=== PATIENT | female | born 1985 | race Caucasian/White ===

== ENCOUNTER 2016-12-01 16:05 | Emergency (ER) | payer OTHER ==
--- NOTE | 2016-12-01 16:20 | ED PDOC ---
Arrival/HPI - General Time Seen by Provider: 12/01/16 16:16 Historian: Patient - History of Present Illness Narrative History of Present Illness (Text): 12/01/16 16:17 This 31-year-old female presents to the emergency department complaining of neck pain left shoulder pain and lower back pain 2 days. Patient stated while walking down stairs at work she fell backwards. Patient denies head injury, loss of consciousness, diplopia, shortness of breath, dizziness, chest pain, syncope, urinary symptoms, /GI incontinence, saddle anesthesias, urinary retention, weakness, paresthesias, abdominal pain, or abnormal gait. Time/Duration: Other (2 days) Quality: Aching Context: Work Past Medical History - Provider Review Nursing Documentation Reviewed: Yes - Tetanus Immunization Tetanus Immunization: Unknown - Past Medical History Past Medical History: No Previous - Psychiatric Hx Substance Use: No - Past Surgical History Past Surgical History: No Previous - Anesthesia Hx Anesthesia Reactions: No - Suicidal Assessment Feels Threatened In Home Enviroment: No Family/Social History - Physician Review Nursing Documentation Reviewed: Yes Family/Social History: Other (Noncontributory) Smoking Status: Never Smoked Hx Alcohol Use: No Hx Substance Use: No Hx Substance Use Treatment: No Allergies/Home Meds Allergies/Adverse Reactions: Allergies No Known Allergies Allergy (Verified 08/01/14 09:39) Review of Systems - Review of Systems Constitutional: Normal. absent: Fatigue, Weight Change, Fevers Eyes: Normal ENT: Normal Respiratory: Normal. absent: SOB, Cough Cardiovascular: Normal. absent: Chest Pain, Palpitations Gastrointestinal: Normal. absent: Abdominal Pain, Nausea, Vomiting Genitourinary Female: Normal. absent: Dysuria, Frequency, Hematuria Musculoskeletal: Arthralgias, Back Pain, Neck Pain Skin: Normal. absent: Rash, Laceration, Cellulitis Neurological: Normal. absent: Headache, Dizziness, Focal Weakness, Gait Changes , Speech Changes, Facial Droop, Disequilibrium, Seizure Endocrine: Normal Hemo/Lymphatic: Normal Psychiatric: Normal Physical Exam Vital Signs Temp Pulse Resp BP Pulse Ox 12/01/16 16:20 99 F 76 16 112/76 98 Temperature: Afebrile Blood Pressure: Normal Pulse: Regular Respiratory Rate: Normal Appearance: Positive for: Well-Appearing, Non-Toxic, Comfortable Pain Distress: None Mental Status: Positive for: Alert and Oriented X 3 - Systems Exam Head: Present: Atraumatic, Normocephalic Pupils: Present: PERRL Extroacular Muscles: Present: EOMI Conjunctiva: Present: Normal Mouth: Present: Moist Mucous Membranes Neck: Present: Normal Range of Motion, Paraspinal Tenderness (Mild left paravertebral tenderness. No vertebral step-off. No vertebral point tenderness) , Trachea Midline. No: Meningeal Signs, MIDLINE TENDERNESS, Lymphadenopathy Respiratory/Chest: Present: Clear to Auscultation, Good Air Exchange. No: Respiratory Distress, Accessory Muscle Use Cardiovascular: Present: Regular Rate and Rhythm, Normal S1, S2. No: Murmurs Abdomen: Present: Normal Bowel Sounds. No: Tenderness, Distention, Peritoneal Signs Back: Present: Normal Inspection, Paraspinal Tenderness (Mild left pulmonary arterial tenderness. No vertebral point tenderness. No vertebral step-off). No : CVA Tenderness, Midline Tenderness, Pain with Leg Raise Upper Extremity: Present: Normal Inspection, Normal ROM, NORMAL PULSES, Neurovascularly Intact, Capillary Refill < 2s. No: Cyanosis, Edema, Tenderness , Swelling, Erythema Lower Extremity: Present: Normal Inspection. No: Edema Neurological: Present: GCS=15, CN II-XII Intact, Speech Normal, Motor Func Grossly Intact, Normal Sensory Function, Normal Cerebellar Funct, Gait Normal, Memory Normal Skin: Present: Warm, Dry, Normal Color. No: Rashes Psychiatric: Present: Alert, Oriented x 3, Normal Insight, Normal Concentration Medical Decision Making ED Course and Treatment: 12/01/16 17:19 Patient came complaining of neck pain and lower back pain and mechanical fall at work. Patient noted left sided neck pain radiates to her left arm. Patient denies head injury. Physical exam was unremarkable. Except for mild tenderness on the left cervical and lumbar paravertebral area. Patient has a normal gait and she is able to move her head with minimal discomfort. Re-evaluation Time: 17:21 Reassessment Condition: Re-examined, Improved - RAD Interpretation Narrative RAD Interpretations (Text): 12/01/16 17:25 Lumbar spine x-rays: No fracture or subluxation. Cervical spine x-rays: No fracture or subluxation. (+) spasm Radiology Orders: 12/01/16 16:28 CERVICAL SPINE >18YR W/OBLIQUE [RAD] Stat LS SPINE WITH OBL > 18 YRS OLD [RAD] Stat - Medication Orders Current Medication Orders: Discontinued Medications Diazepam (Valium) 5 mg PO ONCE ONE PRN Reason: Protocol Stop: 12/01/16 16:29 Last Admin: 12/01/16 16:45 Dose: 5 mg Ketorolac Tromethamine (Toradol) 30 mg IM STAT STA Stop: 12/01/16 16:30 Last Admin: 12/01/16 16:45 Dose: 30 mg MAR Pain Assessment Document 12/01/16 16:45 HI (Rec: 12/01/16 16:45 HI [email or web address]) Pain Reassessment Is this a pain reassessment? No Sleep Is patient sleeping during reassessment? No Presence of Pain Presence of Pain Yes Pain Scale Used Pain Scale Used Numeric Location Left, Right or Bilateral Left Pain Location Body Site Arm IM Administration Charges Document 12/01/16 16:45 HI (Rec: 12/01/16 16:45 HI [id number]) Injection Site MAR Injection Site Right Deltoid Charges for Administration # of IM Administrations 1 Disposition/Present on Arrival - Present on Arrival Any Indicators Present on Arrival: No History of DVT/PE: No History of Uncontrolled Diabetes: No Urinary Catheter: No History Surgical Site Infection Following: None - Disposition Have Diagnosis and Disposition been Completed?: Yes Diagnosis: Cervical radiculopathy, Cervical muscle strain, Back pain Disposition: HOME/ ROUTINE Disposition Time: 17:22 Patient Plan: Discharge Patient Problems: Current Active Problems Problem Status Onset Back pain Acute Cervical muscle strain Acute Cervical radiculopathy Acute Condition: GOOD Discharge Instructions (ExitCare): Cervical Strain (DC), Cervical Radiculopathy (ED), Back Pain (ED) Additional Instructions: Call private doctor for follow-up visit in 1-2 days. Take medication as instructed with food. Official report of x-rays will be available tomorrow. Rest and relax. Return to emergency if pain worsens. Do not operate machinery or drive while taking Valium. Usual also contact workers comp for further medical care Prescriptions: diaZEpam [Valium] 5 mg PO DAILY #7 tab Famotidine [Pepcid] 40 mg PO DAILY #10 tablet Naproxen 500 mg PO BID PRN #14 tab PRN Reason: Pain, Severe (8-10) Referrals: PCP,NO [Primary Care Provider] - Follow up with primary [facility] [Outside] - Follow up with primary [facility] [Outside] - Follow up with primary Forms: [employer] ([place]), WORK NOTE
[2016-12-01 16:28] VITALS: BMI 27.2
[2016-12-01 16:46] VITALS: RESP 16; TEMP 99
--- NOTE | 2016-12-01 17:24 | RAD ---
PROCEDURE: Cervical Spine Radiographs. HISTORY: Pain. COMPARISON: None. FINDINGS: BONES: There is straightening of the cervical spine which could be due to muscle spasm or patient's head position. No evidence of acute fracture. DISC SPACES: Normal. SOFT TISSUES: Normal. No prevertebral soft tissue swelling. OTHER FINDINGS: None. IMPRESSION: No evidence of acute fracture or subluxation. Straightening of the cervical spine which could be position or due to muscle spasm.
--- NOTE | 2016-12-01 17:34 | RAD ---
PROCEDURE: Radiographs of the Lumbar Spine. HISTORY: Back pain COMPARISON: No prior. FINDINGS: BONES: There is mild levocurvature in the lumbar spine. There is no spondylolysis or spondylolisthesis. Bone mineralization is normal. There is an age indeterminate superior endplate compression deformity in the L2 vertebral body. DISC SPACES: The disc heights are maintained. OTHER FINDINGS: None. IMPRESSION: Age indeterminate mild superior endplate compression deformity in the L2 vertebral body. If there is a clinical history of trauma, and if clinically indicated, an MRI may be performed to determine the acuity of the fracture.
[2016-12-01 18:29] VITALS: BP 114/78; PULSE 82; O2SAT 100
== END 2016-12-01 18:24 | disposition home or self-care (01) ==
LOC: ED 16:05
DX: S16.1XXA Strain of muscle, fascia and tendon at neck level, initial encounter (principal); W10.9XXA Fall (on) (from) unspecified stairs and steps, initial encounter; Y99.0 Civilian activity done for income or pay; M54.12 Radiculopathy, cervical region; M54.5 Low back pain
CPT/HCPCS: 72050; 72110; 81025; 96372; 99284; J1885

== ENCOUNTER 2018-07-15 14:34 | Emergency (ER) | payer BC, OTHER ==
[2018-07-15 14:34] VITALS: BMI 27.2
[2018-07-15 14:40] VITALS: RESP 18; TEMP 98.5; O2SAT 100
[2018-07-15] MEDS ORDERED: Sodium Chloride 0.9% 1,000 ML IV STA (14:44)
--- NOTE | 2018-07-15 14:57 | ED PDOC ---
Arrival/HPI - General Chief Complaint: Female Genitourinary Time Seen by Provider: 07/15/18 14:34 Historian: Patient - History of Present Illness Narrative History of Present Illness (Text): 07/15/18 15:00 A 32 year old female, whose past medical history includes UTI, , currently 17 weeks , LMP 04/02/2018, presents to the emergency department complaining of dysuria and 1 episode of vaginal bleeding starting this morning. Patient reports after using the bathroom for urination today and wiping, noticed a small streak of blood. She was instructed by her ASSISTED LIVING CARE MANAGER to be seen and evaluated in the ER. Patient denies any fall/trauma, dark/bloody stools, constipation, fever, chills, vaginal discharge, back pain, trauma, chest pain, rash, skin lesions, or any other complaints at this time. Also, patient mentions having sexual intercourse yesterday and did not bleed afterwards. OBGYN: Dr. Padgett Time/Duration: Other (starting this morning) Past Medical History - Provider Review Nursing Documentation Reviewed: Yes - Tetanus Immunization Tetanus Immunization: Unknown - Past Medical History Past Medical History: No Previous - Psychiatric Hx Substance Use: No - Past Surgical History Past Surgical History: No Previous - Surgical History Hx Tonsillectomy: Yes - Anesthesia Hx Anesthesia Reactions: No - Suicidal Assessment Feels Threatened In Home Enviroment: No Family/Social History - Physician Review Nursing Documentation Reviewed: Yes Family/Social History: No Known Family HX Smoking Status: Never Smoked Hx Alcohol Use: No Hx Substance Use: No Hx Substance Use Treatment: No Allergies/Home Meds Allergies/Adverse Reactions: Allergies No Known Allergies Allergy (Verified 07/15/18 14:40) Review of Systems - Physician Review All systems were reviewed & negative as marked: Yes - Review of Systems Constitutional: absent: Fatigue, Weight Change, Fevers, Night Sweats Eyes: absent: Vision Changes, Photophobia, Eye Pain ENT: absent: Hearing Changes, Tinnitus Respiratory: absent: SOB, Cough, Sputum, Wheezing Cardiovascular: absent: Chest Pain, Palpitations Gastrointestinal: absent: Abdominal Pain, Stool Changes (no dark/bloody stools), Constipation, Diarrhea Genitourinary Female: Dysuria, Vaginal Bleeding. absent: Frequency, Hematuria, Urine Output Changes, Vaginal Discharge Musculoskeletal: absent: Back Pain Skin: absent: Rash, Skin Lesions Neurological: absent: Headache, Dizziness Endocrine: absent: Diaphoresis Hemo/Lymphatic: absent: Adenopathy Psychiatric: absent: Anxiety Physical Exam Vital Signs Reviewed: Yes Vital Signs Temp Pulse Resp BP Pulse Ox 07/15/18 14:38 98.5 F 67 18 121/78 100 Temperature: Afebrile Blood Pressure: Normal Pulse: Regular Respiratory Rate: Normal Appearance: Positive for: Well-Appearing, Non-Toxic, Comfortable Pain Distress: None Mental Status: Positive for: Alert and Oriented X 3 - Systems Exam Head: Present: Atraumatic, Normocephalic Pupils: Present: PERRL Extroacular Muscles: Present: EOMI Conjunctiva: Present: Normal Ears: Present: Normal, NORMAL TM. No: Erythema Mouth: Present: Moist Mucous Membranes Pharnyx: Present: Normal. No: ERYTHEMA, EXUDATE, TONSILS ENLARGED, Uvular Deviation, Muffled/Hoarse Voice Nose (External): Present: Atraumatic. No: Abrasion, Contusion, Laceration Neck: Present: Normal Range of Motion. No: Meningeal Signs, MIDLINE TENDERNESS Respiratory/Chest: Present: Clear to Auscultation, Good Air Exchange. No: Respiratory Distress, Accessory Muscle Use Cardiovascular: Present: Regular Rate and Rhythm, Normal S1, S2. No: Murmurs Abdomen: No: Tenderness, Distention, Peritoneal Signs Back: Present: Normal Inspection. No: CVA Tenderness, Midline Tenderness Upper Extremity: Present: Normal Inspection, Normal ROM, NORMAL PULSES. No: Cyanosis, Edema Lower Extremity: Present: Normal Inspection, NORMAL PULSES. No: Edema Neurological: Present: GCS=15, CN II-XII Intact, Speech Normal, Motor Func Grossly Intact Skin: Present: Warm, Dry, Normal Color. No: Rashes Psychiatric: Present: Alert, Oriented x 3, Normal Insight, Normal Concentration Medical Decision Making ED Course and Treatment: 07/15/18 15:01 Impression: 32 year old female who is 17 weeks pregnany (, LMP 04/02/2018) complaining of dysuria and vaginal bleeding. No CVAT or midline pain on exam. No fall or trauma. Vaginal bleeding w/ out rash or ulcer, light amount: pt is sure non bloody stool or melanotic stool. Likely UTI vs threatned AB. Differential Diagnosis included but are not limited to: Threatened AB vs. UTI. Plan: -- Ultrasound -- Labs -- Urinalysis -- IV Fluids -- Reassess and disposition Progress Notes: 07/15/2018 16:03 Ultrasound IMPRESSION: Single live intrauterine gestation with average ultrasound age of 17 weeks 2 days. heart rate 144 beats per minute. Cervix long and closed. Dictator: Emile Fraire MD 07/15/18 16:47 Cervix closed, H&H unremarkable Blood type is A+ Pt is not RH negative: No indication for rhogram UTI on labs repeat exam: no CVAT / midline back pain or abd-ttp clear for d/c home with return indications and follow up. Pt agreeable to plan. - Lab Interpretations I have reviewed the lab results: Yes - Medication Orders Current Medication Orders: Sodium Chloride (Sodium Chloride 0.9%) 1,000 mls @ 999 mls/hr IV .[id number] STA Stop: 07/15/18 15:44 - Scribe Statement The provider has reviewed the documentation as recorded by the Scribe Agustin Sahu Provider Scribe Attestation: All medical record entries made by the Scribe were at my direction and personally dictated by me. I have reviewed the chart and agree that the record accurately reflects my personal performance of the history, physical exam, medical decision making, and the department course for this patient. I have also personally directed, reviewed, and agree with the discharge instructions and disposition. Disposition/Present on Arrival - Present on Arrival Any Indicators Present on Arrival: No History of DVT/PE: No History of Uncontrolled Diabetes: No Urinary Catheter: No History of Decub. Ulcer: No History Surgical Site Infection Following: None - Disposition Have Diagnosis and Disposition been Completed?: Yes Diagnosis: UTI (urinary tract infection), Threatened Disposition: HOME/ ROUTINE Disposition Time: 16:49 Condition: STABLE Discharge Instructions (ExitCare): Urinary Tract Infection, Adult (DC), Threatened Miscarriage (DC), Bleeding With (DC) Additional Instructions: [facility] [place], thank you for letting us take care of you today. Your provider was Isra Ware and you were treated for bleeding ( ). The emergency medical care you received today was directed at your acute symptoms. If you were prescribed any medication, please fill it and take as directed. It may take several days for your symptoms to resolve. Return to the Emergency Department if your symptoms worsen, do not improve, or if you have any other problems. Please contact your doctor or call one of the physicians/clinics you have been referred to that are listed on the Patient Visit Information form that is included in your discharge packet. Bring any paperwork you were given at discharge with you along with any medications you are taking to your follow up visit. Our treatment cannot replace ongoing medical care by a primary care prov ider outside of the emergency department. Thank you for allowing the [facility] team to be part of your care today. If you had an X-Ray or CT scan: A Radiologist will review the ED reading if any change in treatment is needed we will contact you. If you had a blood, urine, or wound culture: It will take several days for the results, if any change in treatment is needed we will contact you. If you had an STI test: It will take 48 hours for the results. Please call after 1 week if you have not heard back. Prescriptions: Cephalexin [Keflex] 500 mg PO BID 7 Days #14 capsule Referrals: Tyler Padgett MD [Family Provider] - Follow up with primary [facility] [place] [Outside] - Follow up with primary [facility] [Outside] - Follow up with primary [facility] [Outside] - Follow up with primary [facility] [Outside] - Follow up with primary Forms: [facility] (Bengali)
[2018-07-15 15:13] LABS: URINE BILIRUBIN NEGATIVE (NEGATIVE); URINE BLOOD TRACE-INTACT (NEGATIVE); URINE GLUCOSE (UA) NEGATIVE (NEGATIVE); URINE LEUKOCYTE ESTERASE SMALL Leu/uL (NEGATIVE); URINE PROTEIN NEGATIVE mg/dL (<30 mg/dL); URINE UROBILINOGEN 0.2 E.U./dL (<1 E.U./dL)
[2018-07-15 15:17] LABS: URINE APPEARANCE SL CLOUDY (CLEAR); URINE COLOR YELLOW (YELLOW)
[2018-07-15 15:37] LABS: BASO # 0.02 K/mm3 (0.0-2.0); BASO % 0.2 % (0.0-3.0); EOS # 0.2 (0.0-0.7); EOS % 1.3 % (1.5-5.0); HEMOGLOBIN 12.5 g/dL (12.0-16.0); LYMPH # 2.4 (1.2-3.4); LYMPH % 20.5 % (22.0-35.0); MEAN CELL VOLUME 78.4 fl (80.0-105.0); MEAN CORPUSCULAR HEMOGLOBIN 25.5 pg (25.0-35.0); MEAN CORPUSCULAR HGB CONC 32.6 g/dl (31.0-37.0); MONO # 0.7 (0.1-0.6); MONO % 5.7 % (1.0-6.0); RBC 4.9 10^6/uL (3.5-6.1); RED CELL DISTRIBUTION WIDTH 14.7 % (11.5-14.5); WHITE BLOOD COUNT 11.6 10^3/uL (4.5-11.0)
[2018-07-15 15:42] LABS: INR 0.95; PARTIAL THROMBOPLASTIN TIME 31.5 Seconds (26.9-38.3); PROTHROMBIN TIME 10.6 SECONDS (9.4-12.5)
[2018-07-15 15:46] LABS: URINE BACTERIA MOD /hpf
[2018-07-15 15:50] LABS: ALB/GLOB RATIO 1.3 (1.1-1.8); ALBUMIN 4.1 g/dL (3.0-4.8); ALT/SGPT 26 U/L (7-56); AST/SGOT 30 U/L (14-36); BLOOD UREA NITROGEN 9 mg/dL (7-21); CALCIUM 9.1 mg/dL (8.4-10.5); GFR NON-AFRICAN AMERICAN > 60; LIPASE 66 U/L (23-300)
--- NOTE | 2018-07-15 16:07 | US ---
Date of service: 07/15/2018 PROCEDURE: OB Pelvic Ultrasound HISTORY: vag bleed LMP: 03/18/2018 COMPARISON: None available. FINDINGS: UTERUS: Placenta: Variable he. Presentation: Cephalic BPD: 1.8 cm compatible with estimated gestational age of 17 weeks, 5 days HC: 13.8 cm compatible with estimated gestational age of 17 weeks, 3 days AC: 13.8 cm compatible with estimated gestational age of 17 weeks, 2 days FL: 2.5 cm compatible with estimated gestational age of 17 weeks, 3 days Heart rate: 144 bpm. age (Ultrasound estimated): 17 weeks, 2 days Yanet-gestational hemorrhage: None. Date of delivery (Ultrasound estimated) : 12/28/2018 CERVIX: Measures 3.9 cm. Long and closed. No cervical abnormality seen. FREE FLUID: None. OTHER FINDINGS: None. IMPRESSION: Single live intrauterine gestation with average ultrasound age of 17 weeks, 2 days. heart rate 144 beats per minute. Cervix long and closed..
[2018-07-15 17:11] VITALS: BP 116/70; PULSE 64
== END 2018-07-15 17:10 | disposition home or self-care (01) ==
LOC: ED 14:34
DX: O23.42 Unspecified infection of urinary tract in pregnancy, second trimester (principal); O20.0 Threatened abortion; Z3A.17 17 weeks gestation of pregnancy
CPT/HCPCS: 76815; 80053; 81001; 81025; 83690; 84702; 85025; 85610; 85730; 86850; 86900; 87086; 96360; 99283; J7030